=== PATIENT | female | born 1935 | race Caucasian/White ===

== ENCOUNTER 2017-07-25 08:23 | Emergency (ER) | payer OTHER ==
[~2017-07-25] VITALS: Ht 167.6 cm; Wt 58.6 kg
[~2017-07-25 08:23] MED LIST: AMIO200T42 PO; ASPI-515 PO; DIAZ5TAB PO; GEMF600T PO; LEVO50CA2 PO; METO25TA91 PO; PANT40TA5 PO; SULI150T PO; TRAM50TA2 PO
[2017-07-25 08:25] VITALS: BP 129/55
[2017-07-25] MEDS ORDERED: DONE5TAB14 PO (08:46)
== END 2017-07-25 11:02 | disposition home or self-care (01) ==
LOC: ED 09:04
DX: S60.222A Contusion of left hand, initial encounter (principal); I11.9 Hypertensive heart disease without heart failure; I25.10 Atherosclerotic heart disease of native coronary artery without angina pectoris; Z90.49 Acquired absence of other specified parts of digestive tract; Z90.710 Acquired absence of both cervix and uterus; X58.XXXA Exposure to other specified factors, initial encounter; Y93.89 Activity, other specified; Y92.009 Unspecified place in unspecified non-institutional (private) residence as the place of occurrence of the external cause; Y99.9 Unspecified external cause status
CPT/HCPCS: 29125; 99284